=== PATIENT | female | born 2000 | race Caucasian/White ===

== ENCOUNTER 2024-12-08 11:41 | Emergency (ER) | payer OTHER ==
[~2024-12-08] VITALS: Ht 162.6 cm; Wt 49.9 kg
[2024-12-08] MEDS ORDERED: METOCLOPRAMIDE HCL 10 MG TABLET ONE (12:32)
[2024-12-08] MEDS ORDERED: BUTALB/ACETAMINOPHEN/CAFFEINE CAPSULE ONE (12:32)
[2024-12-08] MEDS: METOCLOPRAMIDE HCL 10 MG TABLET PO ONE (12:35)
[2024-12-08] MEDS: BUTALB/ACETAMINOPHEN/CAFFEINE CAPSULE PO ONE (12:35)
[2024-12-08] MEDS ORDERED: BUTA1CAP46 PO (13:28)
[2024-12-08 13:46] VITALS: BP 132/72; TEMP 98; O2SAT 100
== END 2024-12-08 13:47 | disposition home or self-care (01) ==
LOC: ER 11:51
DX: G43.909 Migraine, unspecified, not intractable, without status migrainosus (principal)
CPT/HCPCS: 70450; A4606; A4663; J8597